=== PATIENT | female | born 1945 | race Caucasian/White ===

== ENCOUNTER → 2023-03-03 10:32 | Outpatient (BNVA) | payer MEDICARE, SELFPAY | PROVIDERS: PCP Neuromusculoskeletal Medicine & OMM; Referring Provider Neuromusculoskeletal Medicine & OMM; Visit Provider Physician Assistant Surgical | DX: R91.1 Solitary pulmonary nodule (principal); J45.909 Unspecified asthma, uncomplicated | CPT/HCPCS: 99214 ==

== ENCOUNTER → 2023-07-07 08:43 | Outpatient (BNVA) | payer MEDICARE, SELFPAY | PROVIDERS: PCP Neuromusculoskeletal Medicine & OMM; Referring Provider Neuromusculoskeletal Medicine & OMM; Visit Provider Student in an Organized Health Care Education/Training Program | DX: J45.909 Unspecified asthma, uncomplicated (principal); C34.90 Malignant neoplasm of unspecified part of unspecified bronchus or lung; Z87.891 Personal history of nicotine dependence | CPT/HCPCS: 99214 ==

== ENCOUNTER → 2024-01-02 09:24 | Outpatient (BNVA) | payer MEDICARE, SELFPAY | PROVIDERS: PCP Neuromusculoskeletal Medicine & OMM; Referring Provider Neuromusculoskeletal Medicine & OMM; Visit Provider Physician Assistant Surgical | DX: J04.0 Acute laryngitis (principal); J45.909 Unspecified asthma, uncomplicated; C34.90 Malignant neoplasm of unspecified part of unspecified bronchus or lung; Z87.891 Personal history of nicotine dependence | CPT/HCPCS: 99214 ==

== ENCOUNTER 2024-01-02 18:32 | Outpatient (REF) | payer MEDICARE, SELFPAY ==
[2024-01-02 13:27] LABS: COVID-19 PCR Negative (Negative); Influenza A PCR Negative (Negative); Influenza B PCR Negative (Negative); RSV PCR Negative (Negative)
[2024-01-02 13:31] LABS: Source Nasopharynx
== END 2024-01-02 18:33 | disposition home or self-care (01) ==
LOC: LBN 18:32
PROVIDERS: PCP Neuromusculoskeletal Medicine & OMM; Visit Provider Physician Assistant Surgical
DX: J04.0 Acute laryngitis (principal)
CPT/HCPCS: 87637

== ENCOUNTER → 2024-01-23 08:59 | Outpatient (BNVA) | payer MEDICARE, SELFPAY | PROVIDERS: PCP Neuromusculoskeletal Medicine & OMM; Referring Provider Neuromusculoskeletal Medicine & OMM; Visit Provider Physician Assistant Surgical ==

== ENCOUNTER 2024-01-23 11:19 | Outpatient (CLI) | payer MEDICARE, SELFPAY ==
[2024-01-23 10:40] LABS: Abs Immature Grans 0.08 10^3/uL (0.0-0.06); Absolute Basophil Count 0.05 10^3/uL (0.0-0.2); Absolute Eosinophil Count 0.34 10^3/uL (0.0-0.7); Absolute Lymphocyte Count 3.51 10^3/uL (1.2-3.4); Absolute Neutrophil Count 3.81 10^3/uL (1.2-6.7); Basophils % 0.6 %; Eosinophils % 3.9 %; HCT 38.4 % (36.0-46.0); Immature Grans % 0.9 %; Lymphocytes % 40.4 %; MCH 30.9 pg (27.0-33.0); MCHC 33.9 % (32.0-36.0); MCV 91 fL (80-95); MPV 8.9 fL (8.0-11.0); Monocytes % 10.4 %; Neutrophils % 43.8 %; Platelet Count 205 10^3/uL (130-400); RBC 4.21 10^6/uL (3.93-5.22); RDW 12.7 % (11.7-14.6); RDW-SD 42.3 fL; WBC 8.69 10^3/uL (4.4-10.8)
[2024-01-23 10:45] LABS: Mono Screening Negative (Negative)
[2024-01-23 11:07] LABS: ALT 38 U/L (14-59); AST 16 U/L (15-37); Albumin 3.5 g/dL (3.4-5.0); Alkaline Phosphatase 65 U/L (46-116); Anion Gap 5.7 mmol/L (3-11); BUN 18 mg/dL (7-18); Bilirubin, Total 0.46 mg/dL (0.2-1.0); CO2 30.3 mmol/L (21.0-32.0); CREATININE 0.8 mg/dL (0.55-1.02); Calcium 8.9 mg/dL (8.5-10.1); Chloride 105 mmol/L (98-107); Estimated GFR 75.37 (mL/min/1.73m2); Glucose 99 mg/dL (74-106); Potassium 3.8 mmol/L (3.5-5.1); Sodium 141 mmol/L (136-145); Total Protein 6.8 g/dL (6.4-8.2)
[2024-01-25 15:25] LABS: EBV DNA Detect/Quant, P Undetected IU/mL (Undetected)
== END 2024-01-23 11:20 | disposition home or self-care (01) ==
LOC: LBO 11:20
PROVIDERS: PCP Neuromusculoskeletal Medicine & OMM; Visit Provider Physician Assistant Surgical
DX: J45.909 Unspecified asthma, uncomplicated (principal); C34.90 Malignant neoplasm of unspecified part of unspecified bronchus or lung; R06.00 Dyspnea, unspecified; R53.83 Other fatigue
CPT/HCPCS: 36415; 80053; 87799; 94640; 99214; J7620; 85025; 86308

== ENCOUNTER → 2024-07-18 10:01 | Outpatient (BNVA) | payer MEDICARE, SELFPAY | PROVIDERS: PCP Nurse Practitioner Family; Referring Provider Neuromusculoskeletal Medicine & OMM; Visit Provider Physician Assistant Surgical | DX: J45.909 Unspecified asthma, uncomplicated (principal); C34.90 Malignant neoplasm of unspecified part of unspecified bronchus or lung; Z87.891 Personal history of nicotine dependence | CPT/HCPCS: 99214 ==

== ENCOUNTER 2024-12-14 11:06 | Outpatient (CLI) | payer MEDICARE, SELFPAY ==
[2024-12-19 15:27] LABS: Cocklebur IgE 0.22 kU/L (<0.70); Eastern Sycamore IgE <0.10 kU/L (<0.70); Epicoccum purpurascens IgE <0.10 kU/L (<0.70); Penicillium chrysogenum IgE <0.10 kU/L (<0.70); Red Sorrel IgE <0.10 kU/L (<0.70); Stemphyllium IgE <0.10 kU/L (<0.70)
[2024-12-19 15:57] LABS: Fusarium moniliforme, IgE <0.10 kU/L (<0.70); Wormwood IgE 0.57 kU/L (<0.70)
[2024-12-20 17:51] LABS: CLASS 0; Cedar Red IgE <0.10 kU/L (<0.35); Rhodotorula IgE <0.35 kU/L (<0.35)
== END 2024-12-14 11:07 | disposition home or self-care (01) ==
LOC: LBO 11:07
PROVIDERS: PCP Nurse Practitioner Family; Visit Provider Physician Assistant
DX: Z79.899 Other long term (current) drug therapy (principal); J31.0 Chronic rhinitis; R53.1 Weakness; R53.83 Other fatigue; J45.909 Unspecified asthma, uncomplicated
CPT/HCPCS: 36415; 86003

== ENCOUNTER → 2025-01-16 10:55 | Outpatient (BNVA) | payer MEDICARE, SELFPAY | PROVIDERS: PCP Nurse Practitioner Family; Referring Provider Nurse Practitioner Family; Visit Provider Physician Assistant Surgical | DX: J45.909 Unspecified asthma, uncomplicated (principal); C34.90 Malignant neoplasm of unspecified part of unspecified bronchus or lung; Z87.891 Personal history of nicotine dependence | CPT/HCPCS: 99214 ==

== ENCOUNTER 2025-01-29 00:59 | Outpatient (CLI) | payer MEDICARE, SELFPAY ==
[2025-01-29] MEDS: Inhaler, Assist Device 1 EACH MC (14:12)
[2025-01-29] MEDS: Levalbuterol HFA 15 GM INH 4 PUFF IH (14:12)
--- NOTE | 2025-02-01 11:57 | W.PFT ---
Date of service: 01/29/25 Time of Service: 12:43 Pulmonary Function Test Result Indications: Lung cancer, RUL pneumonectomy Impression 1. Good patient effort was noted. ATS standards for reproducibility were met. 2. Spirometry showed mild obstructive lung disease with an FEV1 of 102% (1.77 L) 3. Following the administration of a bronchodilator there was not a significant response 4. TLC was normal. No evidence of restrictive lung disease 5. DLCO was 59%, consistent with a moderate defect in alveolar gas exchange
== END 2025-01-29 01:00 | disposition home or self-care (01) ==
LOC: RT 00:59
PROVIDERS: PCP Nurse Practitioner Family; Visit Provider Physician Assistant Surgical
DX: J45.909 Unspecified asthma, uncomplicated (principal); C34.90 Malignant neoplasm of unspecified part of unspecified bronchus or lung; J44.9 Chronic obstructive pulmonary disease, unspecified
CPT/HCPCS: 94060; 94726; 94729

== ENCOUNTER → 2025-02-27 13:10 | Outpatient (BNVA) | payer MEDICARE, SELFPAY | PROVIDERS: PCP Nurse Practitioner Family; Referring Provider Nurse Practitioner Family; Visit Provider Physical Therapy Assistant | DX: Z12.11 Encounter for screening for malignant neoplasm of colon (principal) | CPT/HCPCS: S0285 ==

== ENCOUNTER 2025-03-18 08:00 | Day surgery (SDC) | payer MEDICARE, SELFPAY ==
[2025-03-18 08:29] VITALS: BP 118/90; PULSE 101; RESP 22; TEMP 36.4; O2SAT 97
[2025-03-18] MEDS: Na Phosphate Enema-Adult 133 ML BTL PR (08:45)
[2025-03-18] MEDS: Lactated Ringers 1,000 ML 80 ML IV (09:05)
--- NOTE | 2025-03-18 09:13 | ANES.PREOP_ITS ---
General Info Date of Service Date Performed: 03/18/25 Height: 5 ft 4 in Weight: 66.7 kg Body Mass Index (BMI): 25.2 Surgical Procedure: Operation Date: 03/18/25 07:35 Proposed Procedure Side Surgeon nestor Ellis MD Meds Allergies and Home Medications Allergies Allergy/AdvReac Type Severity Reaction Status Date / Time house dust mite Allergy Unknown Unknown Verified 03/12/25 08:28 Home Medication ?Medication ?Instructions ?Recorded areo chamber 09/20/22 atorvastatin 40 mg tablet 40 mg PO DAILY 09/20/22 cyanocobalamin (vitamin B-12) 100 mcg subcut QMONTH 1,000 mcg/mL injection solution inhalational spacing device 09/20/22 (Aerovent Plus spacer) metoprolol succinate 50 mg 50 mg PO DAILY 09/20/22 tablet,extended release 24 hr nitroglycerin 0.4 mg sublingual 0.4 mg sublingual Q5M PRN 09/20/22 tablet ropinirole 1 mg tablet 1 mg PO DAILY 09/20/22 trazodone 100 mg tablet 100 mg PO QHS PRN 09/20/22 venlafaxine 150 mg tablet,extended 150 mg PO DAILY 06/10 release 24 hr venlafaxine 75 mg tablet,extended 75 mg PO DAILY 09/20 release 24 hr zolpidem 10 mg tablet 10 mg PO QHS PRN 09/20/22 omeprazole 20 mg capsule,delayed 20 mg PO DAILY #30 ca ps 12/02/22 release albuterol sulfate 90 mcg/actuation 1 inh inhalation Q4 H PRN shortness 01/02/24 aerosol inhaler of breath or wheezing #8.5 g juliana fluticasone propionate 50 2 spray intranasal DAILY #16 grams 03/22/24 mcg/actuation nasal spray,suspension (Flonase Allergy Relief) cetirizine 10 mg tablet 10 mg PO DAILY PRN 07/04/24 syringe with needle, safety 3 mL 07/04/24 25 gauge x 5/8 budesonide 160 mcg-glycopyr 9 2 inh inhalation BID #10 .7 grams 02/09/25 mcg-formot 4.8 mcg/actuation HFA inhaler (Breztri Aerosphere) bisacodyl 5 mg tablet,delayed 5 mg PO ONCE #4 tabs 01/12 release (Dulcolax (bisacodyl)) polyethylene glycol 3350 17 17 g PO ONCE #238 grams gram/dose oral powder Current Visit Medications: Current Medications Generic Name Dose Route Start Last Admin Trade Name Freq PRN Reason Stop Dose Admin Ringer's Solution 1,000 mls @ 80 mls/hr 03/18/25 06:00 03/18/25 09:05 IV 03/18/25 23:59 80 mls/hr INFUSION JOHN Administration Sodium Biphosphate/Sodium Phosphate 133 ml 03/18/25 06:00 Na Phosphate Enema-Adult 133 Ml Btl OR 03/18/25 23:59 DIRECTED PRN Sodium Chloride 0 ml 03/18/25 06:00 Normal Saline Flush 10 Ml Syr IV 03/18/25 23:59 PRN PRN Sodium Chloride 0 ml 03/18/25 06:00 Normal Saline 10 Ml Vial IJ 03/18/25 23:59 DIRECTED PRN Sterile Water 0 ml 03/18/25 06:00 Water,Injection,Sterile 10 Ml Vial IJ 03/18/25 23:59 DIRECTED PRN PFSH Active Problems Active Problems: Problem Status Onset Code On beta martha at home Acute Z79.899 Chronic rhinitis Acute J31.0 Weakness Acute R53.1 Speech disorder Acute R47.9 Hoarseness of voice Acute R49.0 Fatigue Acute R53.83 Personal history of nicotine dependence Acute Z87.891 Lung cancer Chronic C34.90 Asthma Chronic J45.909 Pulmonary nodule 1 cm or greater in diameter Acute R91.1 Ventricular beat, premature Acute I49.3 Transient cerebral ischemia Chronic G45.9 Cerebrovascular small vessel disease Acute I67.9 Restless legs syndrome Acute G25.81 Nasal congestion Acute R09.81 Muscle weakness Acute M62.81 Mild cognitive disorder Acute F09 Lack of energy Acute R53.83 Iron (Fe) deficiency anemia Acute D50.9 Insomnia Acute G47.00 Hyperlipidemia Acute E78.5 GERD (gastroesophageal reflux disease) Chronic K21.9 Dysthymia Acute F34.1 Dyspnea Acute R06.00 Cubital tunnel syndrome Acute G56.20 Cobalamin deficiency Acute E53.8 Chest pain Acute R07.9 Carpal tunnel syndrome Acute G56.00 Benign essential hypertension Acute I10 Medical History Medical History Chronic airway disease Acute exacerbation of chronic obstructive airways disease Surgical History Surgical History S/P pilonidal cyst excision pt. denies S/P cholecystectomy S/P partial lobectomy of lung 01/19/2023 Hx of cyst of breast excision Hx of cholecystectomy 03/21/1992 Hx of heart surgery 11/20/2004 Hx of cataract surgery Bilateral, (07/06/2016)(03/23/2016) Tobacco Smoking/Tobacco Use Status: Former Tobacco Use Alcohol Alcohol Intake: current Substance Use Substance use: Never Substance use type: does not use Details: alcohol: t-4 Vital Signs and Lab Results Vital Signs Most Recent Vital Signs in EMR: Most Recent Vital Signs Temp Pulse Resp BP Pulse Ox 36.4 C L 101 H 22 118/90 97 03/18/25 08:29 03/18/25 08:29 03/18/25 08:29 03/18/25 08:29 03/18/25 08:29 Anesthesia Assessment and Plan Anesthesia History Personal History: No History of Anesthesia Complications Family History: No Family History of Anesthesia Complications Exercise Tolerance Exercise Tolerance: Metabolic Equivalents>4 Cardiac & Pulmonary Exam Cardiac Exam: Normal S1/S2 Heart Sounds Pulmonary Exam: Clear Bilateral Breath Sounds Implantable Cardiac Device Does patient have a Pacemaker or an ICD?: No Airway Exam Known Difficult Airway: No Mallampati Class: 4 Mouth Opening: Narrow (< 3cm) Thyromental Distance: Greater than 3 cm Neck Range of Motion: Full ROM Neck Circumference: Normal Teeth Condition: Normal Dentition ASA Classification ASA Score: ASA 3 Emergency Case?: No NPO Status NPO Status: NPO Clears >2 hours, Solids >8 hours Anesthesia Plan Resuscitation Status: Full Code Anesthesia Technique: General Anesthesia Airway Planned: Natural Airway Monitors Used: Standard Monitors Preoperative Comments:: 79 yo for colo. Sig PMHx: CAD (2005 stents x 2. denies chest pain or NTG use), HTN, lobectomy (for [place], [facility]), asthma (trelegy, albuterol), TIA (no longer on Plavix). ECHO/[facility]: LVEF 61%, no sig valve issues. PFT: FEV1/FVC 67%, FEV1 102%, DLCO 59%. Previous Anes: - [facility]/lobectomy, mac 4 grade 2, easy mask. - [facility]/bronch, martino 2 grade 1, easy mask.
[2025-03-18 09:23] VITALS: BMI 25.2
--- NOTE | 2025-03-18 09:49 | BOWEL_PTH ---
PATIENT: Dasia Barragan LOC: [facility] U#:[id number] AGE/SX: 79/F ROOM: RE03/18/[address]: Heike Ellis MD : 1945 BED: DIS: 03/18/2025 SPEC #: [id number] RECD: 03/18/25 13:04 STATUS: LIBBY RYAN #: [id number] YADY: 03/18/25 09:[address]: Heike Ellis DEPT: Surgical Specimen RECD BY: Tete Sheldon ENTERED: 03/18/25 13:05 SP TYPE: Bowel OTHR DR: Ashlyn Quiroz Tissues: 1 - BIOPSY BOWEL 2 - BIOPSY BOWEL Procedures: GROSS AND MICRO LEVEL 4 Comments: [id number]
--- NOTE | 2025-03-18 10:09 | W.COLOREPORT ---
Date of service: 03/18/25 Time of Service: 10:09 Colonoscopy Report Date of procedure: 03/18/25 Pre-op diagnosis general: routine screening colonoscopy Post-op diagnosis procedure note: other (1. multiple ascending colon polyps ) Procedure: Colonoscopy with cold forceps and cold snare polypectomy Surgeon: Heike Ellis Anesthesia Type: General:No Airway Estimated blood loss (mL): 2 Pathology: other (1. multiple ascending colon polyps (4). 2. Larger ascending colon polyp. ) Complications: None Prep: Miralax/Dulcolax (good) Procedure Description: Informed consent was obtained and the patient was taken to the procedure area. The patient was placed in left lateral decubitus position on the procedure table. Timeout was performed. Anesthesia was induced. A lubricated colonoscope was inserted through the anus and passed to the cecum. The cecum was identified by the ileocecal valve and the appendiceal orifice. The scope was then slowly withdrawn and the colonic and rectal mucosa examined. Ascending colon with 5 polyps. One larger polypoid lesion was sessile, soft, measured 10mm in size and was removed with cold snare and retrieved through polyp trap. Removal was complete. Retrieval shows small fragments after suction trap trauma. Four polyps 4-6mm in size also seen and removed piecemeal with cold forceps. Sent together as one specimen multiple ascending colon polyps. Removal and retrieval were complete. No diverticulosis was seen. The scope was retroflexed in the anorectal junction examined. Uncomplicated internal hemorrhoids present. Assessment and plan: screening colonoscopy Ascending colon polyps (5 total) Timing of next colonoscopy will depend on the pathology of the excised polyps. If all hyperplastic, will not require additional screenings due to age. If tubular adenomas or sessile serrated polyps without dysplasia, recommend 3 year follow up. If dysplasia present will recommend 1 year follow up due to piecemeal removal.
[2025-03-18 10:11] VITALS: BP 111/70; PULSE 81; RESP 20; TEMP 36.6; O2SAT 94
--- NOTE | 2025-03-18 10:15 | W.PM.DSUDISC ---
Date of service: 03/18/25 Discharge Plan Disposition Patient Disposition: Home Condition: Stable Discharge Details Reason For Visit: screening colonoscopy Attending Provider: Heike Ellis Primary Care Provider: Ashlyn Quiroz Home Meds and New Rx's Prescriptions: Continued omeprazole 20 mg capsule,delayed release(DR/EC) 20 mg PO DAILY Qty: 30 6RF albuterol sulfate 90 mcg/actuation HFA aerosol inhaler 1 inh inhalation Q4H PRN (Reason: shortness of breath or wheezing) Qty: 8.5 0RF fluticasone propionate [Flonase Allergy Relief] 50 mcg/actuation spray,suspension 2 spray intranasal DAILY Qty: 16 12RF Rx Instructions: administer into each nostril (DME) areo chamber See Rx Instructions .Route .MEDSUPPLY Rx Instructions: as directed atorvastatin 40 mg tablet 40 mg PO DAILY cyanocobalamin (vitamin B-12) 1,000 mcg/mL solution 100 mcg subcut QMONTH (DME) Aerovent Plus Spacer See Rx Instructions .Route Rx Instructions: As directed metoprolol succinate 50 mg tablet extended release 24 hr 50 mg PO DAILY nitroglycerin 0.4 mg tablet, sublingual 0.4 mg sublingual Q5M PRN Rx Instructions: do not exceed 3 doses per episode ropinirole 1 mg tablet 1 mg PO DAILY trazodone 100 mg tablet 100 mg PO QHS PRN Patient Comments: 50 mg venlafaxine 150 mg tablet extended release 24hr 150 mg PO DAILY venlafaxine 75 mg tablet extended release 24hr 75 mg PO DAILY zolpidem 10 mg tablet 10 mg PO QHS PRN cetirizine 10 mg tablet 10 mg PO DAILY PRN (DME) syringe with needle, safety 3 mL 25 gauge x 5/8 syringe See Rx Instructions .Route Rx Instructions: As directed Breztri Aerosphere 160-9-4.8 mcg/actuation HFA aerosol inhaler 2 inh inhalation BID Qty: 10.7 12RF Discontinued bisacodyl [Dulcolax (bisacodyl)] 5 mg tablet,delayed release (DR/EC) 5 mg PO ONCE Qty: 4 0RF Rx Instructions: Take per colonoscopy instructions provided by ordering providers office polyethylene glycol 3350 17 gram/dose powder 17 g PO ONCE Qty: 238 0RF Rx Instructions: Take per colonoscopy instructions provided by ordering providers office Discharge Instructions Additional Instructions: 5 polyps seen and removed today. Timing of next colonoscopy will depend on the biopsy results of the polyps. I will mail you a letter within 30 days with the results and my final recommendation. If all hyperplastic polyps, you will not require additional screenings due to age. If tubular adenomas or sessile serrated polyps, recommend 3 year follow up colonoscopy. Stand Alone Forms: Anesthesia Discharge Inst[facility] Kraig Yanez ([facility]), Portal Information Activity:: Activity as Tolerated Diet:: As Tolerated Discharge Orders Discharge Orders: Discharge Order (Routine); Ordered 03/18/25 Ordered By: Heike Ellis DS: Diagnosis Discharge Diagnosis (1) Encounter for colorectal cancer screening: Status: Acute (2) Polyp of ascending colon: Status: Acute
--- NOTE | 2025-03-18 10:18 | W.ANESPOSTOP ---
Postoperative Evaluation Date, Time and Location Date Performed: 03/18/25 Time Performed: 10:18 Patient Location: Day Surgery Unit Vital Signs Most Recent Imported Vital Signs: Most Recent Vital Signs Temp Pulse Resp BP Pulse Ox 36.6 C 81 20 111/70 94 03/18/25 10:11 03/18/25 10:11 03/18/25 10:11 03/18/25 10:11 03/18/25 10:11 Pain Score Most Recent Pain Score: Most Recent Pain Score Pain Level 1 03/18/25 08:29 Assessment Mental Status: Awake (Alert & Oriented to Patient Baseline) Airway and Respiratory Function: Patent airway with normal (patient baseline) respiratory exam Cardiovascular Function: Hemodynamically Stable Hydration Status: Adequately Hydrated Nausea & Vomiting: No Nausea or Vomiting Pain: Pain is tolerable per patient Peripheral Nerve Block: Patient did not receive a nerve block
[2025-03-18 10:39] VITALS: BP 121/68; PULSE 76; RESP 20; TEMP 36.4; O2SAT 98
== END 2025-03-18 11:06 | disposition home or self-care (01) ==
PROVIDERS: PCP Nurse Practitioner Family; Visit Provider Surgery
PROC: 0DJD8ZZ Inspection of Lower Intestinal Tract, Via Natural or Artificial Opening Endoscopic (ICD-10-PCS; CPT 45378; principal; 2025-03-18 07:30)
DX: Z12.11 Encounter for screening for malignant neoplasm of colon (principal); Z12.12 Encounter for screening for malignant neoplasm of rectum; C18.2 Malignant neoplasm of ascending colon; D12.4 Benign neoplasm of descending colon
CPT/HCPCS: 45385; 45380; 88305; J2704